=== PATIENT | male | born 1965 | race Caucasian/White ===

== ENCOUNTER → 2017-06-11 10:58 | Outpatient (CLI) | payer OTHER, SELFPAY ==
[2017-06-11 12:13] LABS: ALB/GLOB Ratio 1.2 RATIO (0.9-2.4); AST(SGOT) 26 U/L (15-37); Alanine Aminotransfer ALT/SGPT 45 U/L (16-61); Albumin, Serum 4.1 g/dL (3.2-5.0); Alkaline Phosphatase 83 U/L (45-117); Anion Gap 8 (5-15); BUN 25 mg/dL (7-18); BUN/Creat Ratio 20.7 RATIO (10-20); Calcium,Total 8.7 mg/dL (8.5-10.1); Chloride 109 mmol/L (98-107); Cholesterol 159 mg/dL (200); Creatinine, Serum 1.21 mg/dL (0.70-1.30); EST Glomerular Filtration Rate 67 mL/min (>60); Est Glom Filt Rate - Afr Amer 81 mL/min (>60); Globulin 3.5 g/dL (2.2-4.2); Glucose 94 mg/dL (74-106); High Density Lipoprotein 47 mg/dL; PSA,Total - Annual Screen 0.68 ng/mL (0.00-4.00); Potassium 4.2 mmol/L (3.5-5.1); Protein, Total 7.6 g/dL (6.4-8.2); Sodium Level 142 mmol/L (136-145); Triglycerides 51 mg/dL; Very Low Density Lipoprotein 10 mg/dL (5-40)
== END ==
PROVIDERS: Family Provider Family Medicine; PCP Family Medicine; Visit Provider Family Medicine
DX: Z00.00 Encounter for general adult medical examination without abnormal findings (principal)
CPT/HCPCS: 36415; 80053; 80061; 84153; G0103

== ENCOUNTER → 2017-07-24 16:59 | Outpatient (CLI) | payer OTHER, SELFPAY ==
--- NOTE | 2017-07-24 17:10 | RAD_ITS ---
STUDY: X-RAY CHEST REASON FOR EXAM: Male, 51 years old. Shortness of breath TECHNIQUE: Frontal and lateral views COMPARISON: None. FINDINGS: The lungs are expanded. Left basilar atelectasis. Normal size heart. Normal mediastinum and santhosh. Normal visualized pulmonary arteries. Normal visualized aortic arch and descending thoracic aorta. Normal visualized thoracic spine. Normal visualized ribs, clavicles, and shoulders. There is no demonstrated abnormality of the visualized soft tissue structures of the upper abdomen. RAD/Chest PA and Lateral IMPRESSION: Left basilar atelectasis. Electronically Signed: Ryan Coto DO at 23:54 EDT Tel [phone], Service support ,
[2017-07-24 17:36] LABS: Absolute Lymphocyte Count 1.89 X10^3/ul (0.83-4.51); Absolute Neutrophil Count 7.3 X10^3/uL (2.0-7.7); Basophil# 0.04 X10^3/uL; Basophil% 0.4 % (0-1); Eosinophil# 0.06 X10^3/uL; Eosinophils% 0.6 % (0-5); Hematocrit 40.9 % (40-54); Hemoglobin 14.1 g/dl (13.0-16.5); Lymphocyte # 1.89 X10^3/ul (4.0); Lymphocyte % 18.1 % (19-41); Mean Corp Hgb Conc 34.5 g/gl (32-36); Mean Corpuscular Hgb 32.9 pg (27.0-32.0); Mean Corpuscular Volume 95.6 fL (80-94); Mean Platelet Vol. 8.5 fl (6.2-12.0); Monocyte# 1.16 X10^3/uL; Monocyte% 11.1 % (0-10); Neutrophil # 7.26 X10^3/uL (2.7-7.7); Neutrophil % 69.6 % (47-70); Platelet Count 98 K/mm3 (150-450); RBC Distribution Width CV 11.9 % (11.6-14.6); Red Blood Count 4.28 M/mm3 (4.6-6.2); White Blood Count 10.4 K/mm3 (4.4-11.0)
[2017-07-24 17:40] LABS: POSITIVE COUNT NO; POSITIVE DIFFERENTIAL NO; POSITIVE MORPHOLOGY NO
== END ==
PROVIDERS: Family Provider Family Medicine; PCP Family Medicine; Visit Provider Family Medicine
DX: J15.9 Unspecified bacterial pneumonia (principal)
CPT/HCPCS: 36415; 71046; 85025

== ENCOUNTER 2017-08-31 09:12 | Day surgery (SDC) | payer OTHER, SELFPAY ==
[2017-08-31] VITALS (7 sets, daily range): BP systolic 82–126; BP diastolic 49–81; PULSE 64–87; RESP 14–20; TEMP 36.2–36.7; O2SAT 94–97; BMI 27.6
--- NOTE | 2017-08-31 10:00 | COLBX_PTH ---
PATIENT: HELEN BELLAMY LOC: EN U#:[id number] AGE/SX: 51/M ROOM: RE08/31/[address]: Dr. Luis Cowan MD : [id number] BED: DIS: 08/31/2017 SPEC #: [id number] RECD: 08/31/17 12:24 STATUS: RACHID SHE #: [id number] CANDIE: 08/31/17 10:[address]: Luis Cowan DEPT: SURGICAL PATHOLOGY RECD BY: Mago Rico ENTERED: 08/31/17 13:11 SP TYPE: COLON BX OTHR DR: Dr. Juan Carlos Reese, DO Tissues: Transverse colon Procedures: Surgery Specimen Level IV HEADER OPERATION: colonoscopy (MAC) PRE-OP DIAGNOSIS: Screening TISSUE SUBMITTED: Transverse colon polyp biopsy MICROSCOPIC DIAGNOSIS Transverse colon polyp, biopsy: Fragments of hyperplastic polyp. SJ:meenakshi 09/03/17 MICROSCOPIC DESCRIPTION Slides are reviewed. GROSS DESCRIPTION Received in fixative is one container labeled with the patient's name and designated transverse colon polyp biopsy. The specimen consists of two irregular fragments of light palafox soft tissue that in aggregate measure 0.6 x 0.3 x 0.1 cm. The specimen is totally submitted in one cassette. / SJ:rg 08/31/17 TC:1 CPT: 44400
--- NOTE | 2017-08-31 10:16 | HP.PCM_ITS ---
Past Medical/Surgical History - Planned Operation Planned Operative Procedure/s: cscope Date of Operative Procedure: 08/31/17 Permit Signed: No S.O.S: No Is This Patient Having a Total Joint: No - Previous Hospitalizations/Surgeries HX Hospitalizations: No HX of Surgeries: node removed from parathyroid. right ear surgery as child Any Problems With Anesthesia: Yes - nausea and vomiting You/Your Family Experience Fever (Hyperthermia) With Anes: No Cholinesterase deficiency: No - Cardiovascular Hx Chest Pain within Last 2 months: No Hx of Irregular Heartbeat and/or Afib: No Hx Heart Attack: No Hx Congestive Heart Failure: No Hx Rheumatic Fever: No Hx Hypertension: No Hx Internal Defibrillator: No Hx Pacemaker: No Hx Cardiac Catheterization: No Hx Cardiac Surgery/Stents/Etc.: No Hx Stress Test: Yes - over 10 yrs ago and was neg. per pt HX Edema: No Hx Pain in Legs when Walking/Leg Cramps: No - Respiratory Chronic Cough: No HX of Shortness of Breath: No Hoarseness: No Hx Chronic Obstructive Pulmonary Disease (COPD): No Hx Asthma: No Hx Emphysema: No Hx Sleep Apnea: No Hx Oxygen Use at Home: No Hx Respiratory Tract Infection/Cold (presently): Yes - pneumonia/resolved Do You Snore Loudly (louder than talking or can be heard): No Do You Often Feel Tired/ Fatigued/ Sleepy Dring Daytime?: No Has Anyone Observed You Stop Breathing During Sleep?: No Result (for STOP score): Negative Hx Smoking: No Smoking Status: Never smoker - Gastrointestinal Hx Gastroesophageal Reflux: No Hx Gastrointestinal Disorders: No Hx Gastrointestinal Bleed: No Hx Ulcer: No Hx Hiatal Hernia: No Difficulty Chewing/Swallowing: No Recent Onset of Swallowing Problems: No Special diet followed at home: No Hx Unplanned Weight Loss of 20#: No HX Unplanned Weight Gain of 20#: No - Neurological Hx Seizures: No HX Syncope/Blackout Spells/Unconsciousness: No Hx CVA/Stroke: No Hx Transient Ischemic Attacks (TIA): No Hx Multiple Sclerosis: No Hx Parkinson's Disease: No Hx Head/Neck Injury: No Hx Headaches: No Hx Back Injury/Pain: No Recent Onset of Speech Difficulty: No Restless Legs: No Does patient have nerve stimulator: No Patient instructed to have device shut off: No Rep notified?: No - Blood Disorder Hx Leukemia: No Bleeding Tendencies: No Hx Deep Vein Thrombosis: No Hx High Cholesterol: No Blood Transmitted Disease: No Hx Hepatitis: No Hx Cirrhosis: No Hx Anemia: No Hx Blood Disorders: No - Genitourinary Hx Renal Disease: No - Musculoskeletal Hx Arthritis: No Hx Rheumatoid Arthritis: No Hx Gout: No Recent Onset of an Orthopedic Problem: No - Endocrine Hx Diabetes: No Thyroid Disease: No Hx Steroid Therapy: No - Psycho/Social Hx Substance Use: No Hx Alcohol Use: Yes - light to moderate/social Hx Anxiety: No Hx Depression: No Mental Illness: No Hx Dementia: No - Miscellaneous Hx Cancer: No Recent Exposure to Contagious Disease: No Active MRSA: No Hx of C-Diff: No Any Loose Teeth: No Allergies No Known Allergies Allergy (Unverified 08/30/17 16:07) - Discharge Is Pt Admitted From a Retirement, or a Correction: No Who Could Help: After D/C, Where Do you Plan to Go: Return Home - Physical Exam General: Alert, Oriented x3, Cooperative Lungs: Normal air movement Cardiovascular: Regular rate, Regular Rhythm Abdomen: Soft, Non Tender, Non-Distended Vital Signs Temp Pulse Resp BP Pulse Ox 97.1 F L 87 20 H 126/81 H 96 08/31/17 09:29 08/31/17 09:29 08/31/17 09:29 08/31/17 09:29 08/31/17 09:29 Oxygen Delivery Method Room Air Weight: 214 lb 11.684 oz Body Mass Index (BMI) 27.6 Assessment/Plan All Active Problems (Last Reviewed 07/24/17 @ 16:26 by Dasha Uribe) Community acquired bacterial pneumonia (Acute) History of kidney stones (Acute) 51-year-old male for screening colonoscopy 1. The patient reports he is having no issues at this time. He has no abdominal pain or blood in his stool. He has no family history of colon cancer. He has never had a colonoscopy in the past. 2. I explained endoscopy in detail to the patient. I explained the risks including but not limited to stroke or heart attack with anesthesia, perforation of the GI tract, bleeding, infection. I explained that any of these could necessitate further emergency surgery. The patient understands and all questions were answered sufficiently. The patient wishes to proceed with procedure. Luis Cowan MD Pager: [facility] [address] [place] [address], [address] [place] [address] Office: Surgery Risks - Colonoscopy Risks Include but are not Limited To: Risks include but are not limited to: Bleeding, perforation requiring further surgery, inability to complete colonoscopy requiring barium enema.
--- NOTE | 2017-08-31 10:58 | PCM.OPRPT ---
Problem List (1) Screen for colon cancer Status: Acute Report of Operation Date of Procedure: 08/31/17 Pre-Operative Diagnosis: Screening for colon cancer Post-Operative Diagnosis: Transverse colon polyp Surgery/Procedure Performed:: Colonoscopy with biopsy Specimen's removed: Transverse colon polyp Description of Procedure: The major risks and benefits associated with the procedure were explained to the patient in detail. The patient verbalized understanding and agreement with the same. The patient was brought to the endoscopy suite. After adequate sedation was achieved, the patient was placed in the left lateral decubitus position and a digital rectal exam was performed. This examination was within normal limits. A well-lubricated colonoscope was then inserted into the rectum and advanced under direct visualization to the level of the cecum. The bowel prep was good. The cecum was identified by both visual and anatomic landmarks. A photograph was taken of the end of the cecum. The scope was then fully withdrawn while examining the color, texture, anatomy and integrity of the mucosa from the cecum to the anal canal. The patient did have a small area that could have been a sessile polyp versus hypertrophic fold of the colon. This was biopsied with cold forceps. Hemostasis was good. Otherwise the findings were consistent with normal colonic mucosa. Over 6 minutes were taken to examine the colonic mucosa. Upon reaching the rectum the scope was retroflexed to examine the distal rectal vault. The scope was then straightened and was completely retrieved upon exiting the anal canal and the procedure was terminated. The patient was then transferred to the recovery room in stable condition. Recommendations for follow up: Dependent on pathology
== END 2017-08-31 11:50 | disposition home or self-care (01) ==
LOC: EN 09:12 → AC 09:13
PROVIDERS: Family Provider Family Medicine; PCP Family Medicine; Visit Provider Surgery
PROC: 0DJD8ZZ Inspection of Lower Intestinal Tract, Via Natural or Artificial Opening Endoscopic (ICD-10-PCS; CPT 45378; principal; 2017-08-31 09:55)
DX: Z12.11 Encounter for screening for malignant neoplasm of colon (principal); K63.5 Polyp of colon; Z87.01 Personal history of pneumonia (recurrent); Z87.442 Personal history of urinary calculi; Z87.891 Personal history of nicotine dependence
CPT/HCPCS: 45380; 88305; J7120

== ENCOUNTER → 2022-02-13 | Outpatient (CLI) | payer BC, SELFPAY ==
--- NOTE | 2022-02-13 10:05 | RAD_ITS ---
INDICATION: trauma to the shoulder EXAMINATION/TECHNIQUE: X-RAY - RIGHT XR Shoulder Min 2 Views 4 VIEWS COMPARISON: None. FINDINGS: SOFT TISSUES: No soft tissue swelling or gas. No radiopaque foreign body. BONES/JOINTS: No acute fracture. Joint spaces anatomically maintained. No sclerotic or destructive changes observed. RAD/Shoulder min 2 Views IMPRESSION: No acute bony injury. Electronically Signed: Jose Ulloa MD at 18:36 EST ,
[2022-02-13 11:18] LABS: ALB/GLOB Ratio 1.3 RATIO (0.9-2.4); AST(SGOT) 29 U/L (15-37); Alanine Aminotransfer ALT/SGPT 49 U/L (16-61); Alkaline Phosphatase 69 U/L (45-117); Anion Gap 7 (5-15); BUN 28 mg/dL (7-18); BUN/Creat Ratio 23.5 RATIO (10-20); Chloride 109 mmol/L (98-107); Cholesterol 201 mg/dL (200); Creatinine, Serum 1.19 mg/dL (0.70-1.30); EST Glomerular Filtration Rate 67 mL/min (>60); Est Glom Filt Rate - Afr Amer 81 mL/min (>60); Globulin 3.1 g/dL (2.2-4.2); Glucose 101 mg/dL (74-106); High Density Lipoprotein 52 mg/dL; Potassium 4.1 mmol/L (3.5-5.1); Protein, Total 7.1 g/dL (6.4-8.2); Sodium Level 143 mmol/L (136-145); Triglycerides 60 mg/dL; Very Low Density Lipoprotein 12 mg/dL (5-40)
== END | disposition home or self-care (01) ==
LOC: LAB 09:57
PROVIDERS: PCP Family Medicine; Referring Provider Family Medicine; Visit Provider Family Medicine
DX: M75.100 Unspecified rotator cuff tear or rupture of unspecified shoulder, not specified as traumatic (principal); H91.90 Unspecified hearing loss, unspecified ear
CPT/HCPCS: 36415; 73030; 80053; 80061

== ENCOUNTER 2022-04-25 11:30 | Outpatient (RCR) | payer BC, SELFPAY ==
--- NOTE | 2022-04-05 12:26 | HP.PTEVAL ---
Patient's Visit Information HELEN BELLAMY is a 56 year old M referred to Physical Therapy by Dr. Avelino Mims MD with a diagnosis of R SHLD PAIN. Date of Evaluation: 04/05/22 Physical Therapist: Agnes White PT, Cert MDT - Visit Plan Frequency: 2-3x /Week Duration: 4-6 Weeks Plan: CHECK AUTH. US, E-STIM, MH OR CP, MANUAL THERAPY FOR R SHLD JOINT MOBILIZATION, ROM AND STRETCHING. POSTURE CORRECTION/STRENGTHENING. R UE ROM, STRETCHING AND STRENGTHENING TO HELP MEET SET GOALS. - Subjective Diagnosis: R SHLD PAIN. 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 EMBALMER/FUNERAL DIRECTOR. Present symptoms: R SHLD PAIN. SOMETIMES TINGLING IN RIGHT HAND. NO OTHER TINGLING. RIGHT UE WEAKNESS. NO L UE SX'S. NO NEW NECK PAIN. R WRIST PAIN (WEARING A MAGNET BRACELET THAT SEEMS TO HELP). CHEIF C/O IS LACK OF MOBILITY IN R SHLD. Present since: LATE OCT 2021. Pain Scale: Worst - 3/10 Least - 1/10. Currently: 1-03/17. Commenced as a result of: FALL ON CONCRETE PATIO AT NEIGHBORS ON R SIDE, HEAD AND MOUTH. DID A PUSH UP WITH RIGHT UP TO GET UP OUT OF A PUDDLE. DID NOT HEAR OR FEEL ANYTHING POP. Symptoms at onset: R SHLD STIFFNESS/BRUISING. R MOUTH PAIN. Worse: MORNING, PUSHING OFF ON SOMETHING, TRYING TO REACH BACK, REACHING UP,. Better: HAVING IT DOWN BY SIDE. Disturbed sleep: YES. CURRENTLY HAS TO SLEEP ON L SIDE. Previous history/Previous treatment: UNREMARKABLE. This episode: ONLY SELF TREATMENT. NO INJECTIONS. NO MEDICATIONS. NO SURGERY. PCP DR. VILLALTA REFERRED PATIENT TO DR. MIMS. MRI ORDERED BY WAS DENIED AND DR. MIMS JUST ORDERED MRI AGAIN. Dizziness: NO. Tinnitis: YES - SOME RIGHT HEARING LOSS - NEWLY DIAGNOSED IN LAST COUPLE YEARS AND DEALING WITH PCP. Nausea: NO. Shortness of Breath: NO. Difficulty Swollowing: NO. Gait: NORMAL. Accidents: NO. Unexplained weight loss: NO. Imaging: R SHLD X-RAY 02/13/22 - NORMAL. PMH/Recent major surgery: LEFT acrom. fx. OTHER: IT IS CONSTANTLY REMINDING ME IT IS A PROBLEM BUT THE PAIN IS MILD. PATIENT REPORTS DR. MIMS RECOMMENDED MRI TO DETERMINE IF THERE IS A TEAR AND IF IT IS SURGICAL. PATIENT REPORTS HE WOULD LIKE A MORE DEFINATIVE DX WITH MRI SO THAT HE DOESN'T DO THE WRONG THINGS AND MAKE IT WORSE. - Objective THIS PATIENT AMBULATES INDEP'LY INTO PT WITH NO GROSS DEVIATIONS NOTED. RAINA UE LIGHT TOUCH SENSATION IS GROSSLY INTACT AND SYMMETRICAL. L UE ROM IS WFL AND STRENGTH IS WFL. NO ACUTE R SHLD PAIN/TENDERNESS WITH PALPATION. PATIENT IS R HAND DOMINANT WITH R SHLD LEVEL LOWER THAN LEFT. AROM OF R SHLD = 120 FORWARD FLEX IN SITTING AND 98 DEG ABD. IN SUPINE WITH 60 DEG OF ABD, ACTIVE AND PASSIVE R SHLD ROM IS 40 DEG INTO ER AND IR. HE HAS C/O PAIN WITH R SHLD ROM TESTING ALL PLANES BUT MORE C/O PAIN WITH R SHLD IR TESTING THAN ER TESTING. R UE STRENGTH: SHLD FLEX 3-/5, ABD 2+/5, IR 2+/5, ER 3-/5. RIGHT ELBOW FLEX 4-/5, EXT 4-/5. RAINA UE DTR'S ARE INTACT 2/3. - Balance/Special Test Scores Quick DASH Score: 22.7250 - Goals Goal 1:: DECREASE C/O RIGHT UE SX'S Goal Time Frame: 4-6 Weeks Goal 2:: INCREASE PAINFREE FUNCTIONAL ROM OF R UE TO EASE ADL'S Goal Time Frame: 4-6 Weeks Goal 3:: IMPROVE R UE FUNCTIONAL STRENGTH TO ASSIST WITH RETURN TO PRIOR ACTIVITY LEVEL Goal Time Frame: 4-6 Weeks Goal 4:: PATIENT WILL BE INDEP WITH A HEP FOR CONTINUED IMPROVEMENT ONCE FORMAL PHYSICAL THERAPY CONCLUDES. Goal Time Frame: 4-6 Weeks - Anticipated Interventions Patient/Client Instruction: Educate patient on: Condition, Plan of Care, Risk Factors For the Purpose of:: To improve self management Therapeutic Exercise to Include: Strength training, Body mechanics, Postural training, Flexibilty training, Neuromotor development, Passive ROM, Active ROM, Scapular Strength/Stabilization For the Purpose of:: To decrease pain, To increase ROM, To improve muscle performance and motor function, To increase tolerance to activity/condition/position, To improve ability of physical actions for home/community/work/leisure, To decrease soft tissue restriction, To increase flexibility/ROM Manual Therapy Techniques to Include: Mobilization, Passive ROM, Soft tissue mobilization For the Purpose of:: To decrease pain, To increase ROM, To improve nutrient delivery to tissue TENS: Yes IF ES: Yes Cryotherapy (ice pack, ice massage): Yes Thermo therapy (hot pack): Yes Ultrasound (thermal/non thermal): Yes For the Purpose of:: To decrease pain, To decrease swelling/inflammation, To improve nutrient delivery to tissue Thank you for the opportunity to evaluate your patient. For Medicare and Medicare HMO plans, please review the plan of care and approve it. It will need to be FAXED BACK to us at [phone] for Medicare purposes. For Medicare only, by signing this I certify the plan of care. Please let me know if there are questions or concerns regarding this plan of care. Physician Signature: Date:
--- NOTE | 2022-04-25 12:05 | HP.PTDCSUM_ITS ---
It has been my pleasure to treat HELEN BELLAMY referred by Dr. Avelino Freitas MD, with the diagnosis of R SHLD PAIN for a total of 6 visit(s). Discharge Date: 04/25/22 Please see the following information for a summary of their discharge status. Subjective: PATIENT REPORTS HE DIDN'T SLEEP ON HIS ARM PROPERLY LAST NIGHT AND IT IS TIGHT THIS MORNING. FELT LOOSER AFTER LAST VISIT AND I FEEL I GOT SOME OF MY BEST STRETCHES THAT DAY. PATIENT REPORTS HE HAS BEEN WORKING ON STRETCHING AND STRENGTHENING NOW FOR MONTHS AND HE JUST CAN'T PUSH PAST THE PAIN AND RESTRICTIONS. HE REPORTS HE FEELS BETTER FOR MOST OF THE DAY AFTER EA THERAPY SESSION THEN IT TIGHTENS BACK UP AGAIN. PATIENT DENIES ANY INCREASED SX'S WITH THERAPY. R SHLD Pain Intensity (Out of 10): 5 R ARM/FOREARM/WRIST/HAND Pain Intensity (Out of 10): 0 % Improvement: 0 Objective/Function: PATIENT IS NOT PROGRESSING. UPON EXAM TODAY THERE ARE NO SIGNIFICANT CHANGES IN ROM AND STRENGTH OF R SHLD COMPARED TO INITIAL EVAL. ONLY TEMPORY RELIEF SX'S REPORTED WELL. [facility] STORE HAS IS WORSE. PHYSICIAN RE-ASSESSMENT RECOMMENDED - PATIENT AGREEABLE. Goal 1:: DECREASE C/O RIGHT UE SX'S Goal Progress: Not Progressing Goal 2:: INCREASE PAINFREE FUNCTIONAL ROM OF R UE TO EASE ADL'S Goal Progress: Not Progressing Goal 3:: IMPROVE R UE FUNCTIONAL STRENGTH TO ASSIST WITH RETURN TO PRIOR ACTIVITY LEVEL Goal Progress: Not Progressing Goal 4:: PATIENT WILL BE INDEP WITH A HEP FOR CONTINUED IMPROVEMENT ONCE FORMAL PHYSICAL THERAPY CONCLUDES. Goal Progress: Not Progressing Plan: D/C TO PHYSICIAN RE-ASSESSMENT DUE TO LACK OF PROGRESS. PATIENT A GREEABLE. If there are questions or concerns regarding this patient's physical therapy, please feel free to call me at [phone]. Thank you for the referral of this patient. Sincerely, Agnes White, PT, Cert MDT Balance/Gait/Functional tests - Balance/Special Test Scores Quick DASH Score: [phone]
== END 2022-04-25 15:21 | disposition home or self-care (01) ==
LOC: PT 11:30
PROVIDERS: PCP Family Medicine; Referring Provider Orthopaedic Surgery Sports Medicine; Visit Provider Orthopaedic Surgery Sports Medicine
DX: M25.511 Pain in right shoulder (principal)
CPT/HCPCS: 97035; 97110; 97162; 97530

== ENCOUNTER → 2022-05-03 | Outpatient (CLI) | payer BC, SELFPAY ==
--- NOTE | 2022-05-03 07:55 | MRI_ITS ---
STUDY: MRI RIGHT SHOULDER REASON FOR EXAM: Male, 56 years old. Fall 6 months ago. Pain. Limited range of motion rule out cuff tear TECHNIQUE: Standardized fat and water weighted pulse sequences were obtained in all 3 orthogonal planes. COMPARISON: X-ray February 13, 2022 FINDINGS: There is humeral surface and intrasubstance tear of the supraspinatus tendon with delamination, series 5 images 10/25 and 11/24. Normal infraspinatus tendon. Normal subscapularis tendon. Normal teres minor tendon. Normal supraspinatus muscle. Normal infraspinatus muscle. Normal subscapularis muscle. Normal teres minor muscle. Normal glenohumeral articulation. There is small joint effusion. Normal humeral head and visualized proximal humerus. Normal biceps labral complex. Normal intracapsular long biceps tendon. There is tear of the superior labrum adjacent to the biceps anchor, series 5 image 01/24. Normal capsulo- ligamentous complex. Normal rotator interval. There is mild osteoarthritis of the acromioclavicular articulation. There is a Type II morphology (curved) acromion, with a neutral orientation. There is mild fluid distention of the subacromial bursa, consistent with mild subacromial-subdeltoid bursitis. Normal visualized coracohumeral and coracoacromial ligaments. Normal quadrilateral space. Normal axillary space. Normal deltoid muscle. Normal trapezius muscle. MRI/Upper Ext Joint Only(Routine) IMPRESSION: High-grade partial rotator cuff tear of the supraspinatus tendon. SLAP lesion with tear of the superior labrum. Joint effusion. Subacromial subdeltoid bursitis. Electronically Signed: Zeke Ren MD at 20:49 EDT ,
== END | disposition home or self-care (01) ==
PROVIDERS: PCP Family Medicine; Referring Provider Orthopaedic Surgery Sports Medicine; Visit Provider Orthopaedic Surgery Sports Medicine
DX: M25.511 Pain in right shoulder (principal)
CPT/HCPCS: 73221

== ENCOUNTER 2022-05-31 07:56 | Day surgery (SDC) | payer BC, SELFPAY ==
--- NOTE | 2022-05-29 09:00 | EKG12_ITS ---
Test Reason : PRE OP Blood Pressure : / mmHG Vent. Rate : 066 BPM Atrial Rate : 066 BPM P-R Int : 154 ms QRS Dur : 092 ms QT Int : 380 ms P-R-T Axes : 055 056 037 degrees QTc Int : 398 ms Normal sinus rhythm Nonspecific T wave abnormality Abnormal ECG Confirmed by KELLE ZENDEJAS, MARIA ELENA ([id number]), script editor DEV HARRIS ([id number]) on 05/29/2022 12:38:26 PM Referred By: Avelino Freitas Confirmed By:MARIA ELENA NINA MD
[2022-05-31] VITALS (7 sets, daily range): BP systolic 92–143; BP diastolic 52–92; PULSE 65–77; RESP 16–17; TEMP 35.7–36.4; O2SAT 93–99; BMI 29.0
[2022-05-31] MEDS: Lactated Ringers 1,000 ML 15 ML IV (08:26)
--- NOTE | 2022-05-31 08:36 | PCM.HP.STD ---
HPI - General HPI Narrative HELEN BELLAMY, is a 56 M who presents for right shoulder arthroscopy, capsular release and manipulation under anesthetic, subacromial decompression, rotator cuff repair, subpectoral biceps tenodesis. H and P updated, no changes. OK to proceed. RAB and recovery, narcotic counselling discussed. Right shoulder marked, ok to proceed. MR#: [id number] Acct: [id number] Name:HELEN MANCIA Rep #: [id number] : 1965 ? ? Provider: Dr. Avelino Freitas MD Age/Sex:? 56/M ? ? [place] [facility] [place] Status: Signed Intake Intake Visit Reasons:?RIGHT SHOULDER Chief Complaint: right shoulder x-rays in system Is patient in pain?: Yes (right shoulder ) Pain scale (1-10): 2 Allergies No Known Allergies Allergy (Verified 05/11/22 08:30) Medications multivitamin 1 tab PO DAILY 10/06/21 [History Confirmed 05/11/22] PFSH Medical History? History of kidney stones Right rotator cuff tear Right shoulder pain Seasonal allergies Superior labrum jviwlrto-qv-umyufzucg (SLAP) tear of right shoulder Surgical History? History of parathyroid surgery Family History? Mother CVA (cerebral vascular accident) Hyperlipemia HypertensionFather Heart disease Social History? Smoking Status:? Never smoker how long ago did patient quit smoking:? 2004 alcohol intake:? current alcohol intake frequency: a few times a month substance use type:? does not use what type of physical activity do you participate in:? weight training and other details: tennis frequency:? 3-4 times per week HPI RIGHT SHOULDER Details: Parts of this documentation were recorded by a scribe, this documentation accurately reflects the service provided and the decisions made by me, Dr. Avelino Freitas MD 05/11/22 0806. HELEN BELLAMY is a 56 year old M here today for? FU right shoulder MR to rule out cuff tear after slip and fall.? He has done 6 weeks of therapy.? Does not want to go with cortisone injections wants a definitive surgical solution.? He still has some stiffness difficulty sleeping on the arm pain down the lateral and anterior aspect of the shoulder. Ortho Exam General General: Yes no acute distress Neurologic: Yes alert and Yes oriented x3 Psychologic: Yes reasonable and appropriate Right Shoulder Skin/Wound: Yes CDI, No ecchymosis, No erythema and No swelling Testing: Positive Hawkin's, Neer's, Speed's, TTP Biceps, Drop Arm, Yergason's and empty can; Negative TTP AC Joint, Apprehension Test, Sulcus Sign, translation, Load and Shift, cross arm, lift off, scapular symmetry or scapular winging SHOULDER: ac and passive FE 120, ER 35, no lag, strength FE 4-/5 and ER 5/5, normal sens and motor to ax nerve, LHB and pec major feels intact. IR back pocket Supplemental Info MR#:? [id number] Acct: [id number] Name:? HELEN BELLAMY Rep #: [id number] :?? 1965 M 56 ? From:? ? Zeke Ren MD PCP: Dr. Juan Carlos Reese, DO ? Status: REG CLI Study: Upper Ext? Joint Only(Routine) ? Date of Exam: 05/03/22 Exam# [id number] ? Ordering Dr:? Avelino Freitas MD STUDY: ? MRI RIGHT SHOULDER REASON FOR EXAM: ? Male, 56 years old.? Fall 6 months ago. Pain. Limited range of motion rule out cuff tear TECHNIQUE: ? Standardized fat and water weighted pulse sequences were obtained in all 3 orthogonal planes. COMPARISON: ? X-ray February 13, 2022 FINDINGS: There is humeral surface and intrasubstance tear of the supraspinatus tendon with delamination, series 5 images 10/25 and 11/24. Normal infraspinatus tendon. Normal subscapularis tendon.? Normal teres minor tendon. Normal supraspinatus muscle.? Normal infraspinatus muscle.? Normal subscapularis muscle.? Normal teres minor muscle. Normal glenohumeral articulation. There is small joint effusion. Normal humeral head and visualized proximal humerus.? Normal biceps labral complex.? Normal intracapsular long biceps tendon.? There is tear of the superior labrum adjacent to the biceps anchor, series 5 image 01/24. Normal capsulo- ligamentous complex.? Normal rotator interval. There is mild osteoarthritis of the acromioclavicular articulation.? There is a Type II morphology (curved) acromion, with a neutral orientation. There is mild fluid distention of the subacromial bursa, consistent with mild subacromial-subdeltoid bursitis. Normal visualized coracohumeral and coracoacromial ligaments.? Normal quadrilateral space.? Normal axillary space. Normal deltoid muscle.? Normal trapezius muscle. MRI/Upper Ext? Joint Only(Routine) IMPRESSION: High-grade partial rotator cuff tear of the supraspinatus tendon. ? SLAP lesion with tear of the superior labrum. ? Joint effusion. Subacromial subdeltoid bursitis. ? Electronically Signed: Zeke Ren MD at 20:49 EDT , agree w rads asx Coding Level of Care Code Off vis,est,level 3 Diagnoses Right rotator cuff tear? M75.101 Superior labrum xzsbxfub-uj-dkjcypmcd (SLAP) tear of right shoulder? S43.431A Assessment and Plan Assessment and Plan (1) Right rotator cuff tear: ?Status:?Acute ?Plan: 56 M FU right shoulder pain , MRI shows a SLAP tear and partial-thickness supraspinatus tendon tear with preop stiffness.? Patient is desiring surgical solution.? He has stiffness I warned him that this is a risk factor for stiffness postoperatively.? This seems to been refractory to conservative management including stretching and focused physical therapy.? Patient does not wish to have a cortisone injection.? Surgical solution at this point would be right shoulder arthroscopy, capsular release and manipulation under anesthetic, subacromial decompression, rotator cuff repair, subpectoral biceps tenodesis.? 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 He understands wished to proceed signed scanned forms for surgery as well as possible need for blood products. Pros and cons risks and benefits were discussed with the patient including but not limited to infection, pain, stiffness, bleeding, damage to surrounding structures, neurovascular injury, recurrence or retear, failure or wear of hardware or fixation, instability, fracture, deep vein thrombosis and pulmonary embolism, humerus fracture, anesthetic risks, , patient dissatisfaction, need for further surgery and other risks.? Patient understood and wished to proceed with surgery, and signed the informed consent documentation. (2) Superior labrum inqwlbok-ta-abkdwvrcl (SLAP) tear of right shoulder: [facility] Medical History (Updated 05/19/22 @ 11:15 by Rocío Dowell) Alcohol use Arthritis Back pain Former smoker Heartburn History of kidney stones History of stress test Leg cramps Loss of hearing Marijuana use Right rotator cuff tear Right shoulder pain Seasonal allergies Superior labrum sulpmvos-kp-yizbybbyt (SLAP) tear of right shoulder Syncope Home Medications multivitamin 1 tab PO DAILY 10/06/21 [History Last Taken Unknown] Allergy/AdvReac Type Severity Reaction Status Date / Time No Known Allergies Allergy Verified 05/31/22 08:18 Family History Mother CVA (cerebral vascular accident) Hyperlipemia Hypertension Father Heart disease Surgical History (Updated 05/19/22 @ 11:15 by Rocío Dowell) History of parathyroid surgery Hx of colonoscopy Hx of myringotomy Social History Smoking Status: Former smoker how long ago did patient quit smokin alcohol intake: current alcohol intake frequency: a few times a month substance use type: does not use what type of physical activity do you participate in: weight training and other details: tennis frequency: 3-4 times per week Vital Signs Vital Signs Vital Signs: 05/31/22 08:19 05/31/22 08:19 Temperature 97.6 F L Temperature Source Temporal Pulse Rate 77 Respiratory Rate 16 Respiratory Pattern Normal Blood Pressure 132/90 H Blood Pressure Mean 104 Blood Pressure Source Monitor Blood Pressure Position Semi-Fowlers Blood Pressure Location Left Arm Pulse Ox 98 Oxygen Delivery Method Room Air Weight Weight: 225 lb 15.581 oz Body Mass Index (BMI) 29.0
[2022-05-31] MEDS: Cefazolin 2 GM in 0.9% Normal Saline 100 ML IV (09:30)
--- NOTE | 2022-05-31 09:36 | PCM.OPRPT ---
Problems Associated Problem List Diagnoses (1) Superior labrum rpeeqcaf-hf-fqziwnzwz (SLAP) tear of right shoulder: (2) Right rotator cuff tear: (3) Right shoulder pain: Report of Operation Date of Procedure: 05/31/22 Pre-Operative Diagnosis: right shoulder stiffness, RC tear, slap tear Post-Operative Diagnosis: same Surgery/Procedure Performed:: right shoulder arthroscopy, capsular release, ASHLEIGH, RCR, biceps tenodesis Surgeon: Avelino Freitas Type of Anesthesia: Block,Regional and General Anesthesiologist: Rigoberto Nicolas Estimated Blood Loss (mL): 100 Description of Procedure: Patient brought to the operating room theater.? Placed supine on the table.? General anesthesia induced.? 2 g IV Ancef administered prior to the start of procedure.? Patient placed right side up lateral decubitus beanbag positioner axillary roll used.? All bony prominences padded.? SCDs on the legs.? Upper extremity prepped and draped in usual sterile fashion chlorhexidine-based prep solution allowing over 3 minutes drying time prior to draping.? 10 pounds of inline traction with the arm in 35 degrees abduction was employed.? Preoperative timeout performed to confirm the site the patient and the surgery. Began by inserting the arthroscope into the intra-articular portion of the shoulder through a standard posterior arthroscopy portal.? Did a full diagnostic arthroscopy.? Shoulder very tight. Established an anterior portal through the rotator interval just posterior to the biceps tendon using inside-out spinal needle localization.? Cartilage on the glenoid and humeral head were normal.? Moderate synovitis throughout. Type II SLAP tear instability of the long head of the biceps insertion at the superior portion of the labrum.? No obvious other labrum tears.? No loose bodies.? Biceps tenotomy performed with an ablator instrument.? Gently debrided the stump.? Again, intra articular shoulder joint was very. I released the anterior superior portion of the capsule again very tight and difficult. I inserted a cannula anteriorly 7 x 7 mm. Put the scope anteriorly looked posteriorly. Used a cannula posteriorly. Did a posterior capsular release again very tight difficult to perform the complete capsular release therefore remove the arthroscope to do manipulation under anesthetic with the arm in external rotation to full forward elevation felt the capsular release as well as external rotation to 60 degrees, gained 170 FE. Reinserted the arthroscope. Cleared some minor bleeding. Completed the inferior aspect of the capsulotomy, and full capsulotomy 360 degrees and rotator interval resection. Took arthroscopy pictures throughout subscapularis appeared normal as did the posterior inferior aspect of the rotator cuff. In the mid aspect undersurface humeral sided near complete tear at the mid aspect of the supraspinatus. Gentle debridement under surface. Marked this with a spinal needle. Next placed the scope into the subacromial space.? Did a complete bursectomy.? I performed a subacromial decompression for moderate type II downsloping for approximately 4 mm down to flat margins. Identified the previous area of tearing of the supraspinatus where I marked it with a spinal needle. This was 90% partial-thickness completed the tear to a 5mm x 5 mm complete tear. I next used inverted horizontal mattress fiber tape Arthrex sutures as well as a fiber link stitch in between that to create a rip stop technique suture. I then used a pick instrument to create micro trephinations at the greater tuberosity insertion. I then chose my site for the suture anchor used the tap down to the second line and then inserted the Arthrex 4.75 mm bio Composite swivel lock anchor with 3 sutures down to an appropriate depth with good cortical purchase. Sutures cut short stay suture removed. Arthroscopy pictures taken and saved onto the system. Arthroscope withdrawn.? Next I turned my attention to the open aspect of the procedure.? Made a small 2 inch incision centered over the proximal anteromedial aspect of the upper humerus.? Carried dissection down through skin subcutaneous tissue, achieved meticulous hemostasis.? Incised the fascia in line with skin incision.? Identified long head biceps delivered this through the incision.? Used the Arthrex proximal biceps tenodesis with button kit whipstitch with a Abdullahi needle.? Did 5 locking sutures then passed the suture back proximally to lock the repair.? Cut the suture at the splice.? Shortened the tendon slightly.? Passed the sutures in opposing directions through the button.? Next I used the spade tip 3.2 mm drill bit unicortical hole irrigated any bone dust.? Did this in the mid aspect of the humerus.? Then passed the button into the hole flipped the button deliver the tendon to the tunnel.? Then used Umanzor needle passed 1 limb of the suture back through the tendon and 5 interrupted half inches with the sutures cut short to lock the tendon in place.? Wound thoroughly irrigated subcutaneous tissue closed with 2-0 Vicryl and 3-0 Monocryl.? Skin cleaned with wet and dry dressing, then application of Steri-Strips Adaptic 4 x 4 gauze ABD dressing cloth tape and a sling abduction pillow sling for the upper extremity.? Case terminated patient woken up from the general anesthetic transferred off the operating table and taken to postanesthetic care unit in stable condition.? All sponge needle instrument counts were correct no complications plan for the patient discharged home per day surgery criteria start pendulum exercises as well as hand wrist and elbow exercises and follow-up in the office in 2 days time. Complications none Admit VTE Documentation VTE Present on Admission: No VTE Mechan Device Prophylaxis: SCD's VTE Pharm Prophylaxis ordered?: No Reason prophylaxis not ordered:: Treatment Not Indicated Procedures Musculoskeletal 20xxx-29xxx: Other Procedure See Report
[2022-05-31] MEDS: Epinephrine (1 mg/ml) 1 MG/ML VIAL (10:09)
--- NOTE | 2022-05-31 11:30 | DCINST_ITS ---
Discharge Instructions Diet Discharge Diet: No restrictions Activity Ice area for (Minutes): 10 Lifting Restrictions: pendulums four times a day, no lifting over 1 pound, ok for assisted ROM Dressing / Incision Call your doctor if your incision/area has: Continuous Slow Oozing, Sudden Increased Bleeding, Increased Pain/ Swelling, Increased Redness, Foul Smelling Discharge and Swelling at the incision site Remove Dressing in: leave in place till F/U Follow Up Care Please Follow Up With: Avelino Freitas MD When: 2 days Test Results: Test results from this visit will be discussed in further detail at your follow- up appointment, if applicable. Discharge Plan Admission Attending Provider: Avelino Freitas Primary Care Provider: Juan Carlos Reese Instructions Patient Instructions: After Shoulder Arthroscopy Discharge Orders/Prescriptions Prescriptions: New oxycodone-acetaminophen [Endocet] 5-325 mg tablet 1 tab PO Q4H MDD 6 PRN (Reason: pain) 7 Days Qty: 30 0RF No Action multivitamin Tablet 1 tab PO DAILY Referrals / Follow Up: Juan Carlos Reese DO [Primary Care Provider] - Avelino Freitas MD [Med Staff - Active Staff] - Disposition Disposition (needs filled in before D/C Order can be placed): Home, Self Care
[2022-05-31] MEDS: HYDROcodone Bitartrate/Apap 5/325 Tablet PO (13:05)
== END 2022-05-31 14:21 | disposition home or self-care (01) ==
LOC: SDC 07:57 → AC 07:57
PROVIDERS: PCP Family Medicine; Referring Provider Orthopaedic Surgery Sports Medicine; Visit Provider Orthopaedic Surgery Sports Medicine
PROC: (CPT 29805; principal; 2022-05-31 09:15)
DX: S46.011A Strain of muscle(s) and tendon(s) of the rotator cuff of right shoulder, initial encounter (principal); S43.431A Superior glenoid labrum lesion of right shoulder, initial encounter; Z87.891 Personal history of nicotine dependence; W19.XXXA Unspecified fall, initial encounter
CPT/HCPCS: 29826; 29827; 23430; 01630; 64415; 29825; 93005; J7120; J2405

== ENCOUNTER 2022-08-28 17:00 | Outpatient (RCR) | payer BC, SELFPAY ==
--- NOTE | 2022-06-05 14:04 | HP.PTEVAL ---
Patient's Visit Information HELEN BELLAMY is a 56 year old M referred to Physical Therapy by Dr. Avelino Freitas MD with a diagnosis of R SLAP tear. Date of Evaluation: 06/05/22 Physical Therapist: [facility] DPT - Visit Plan Frequency: 2x /Week Duration: 8 weeks Plan: Start with PROM to R shoulder. Progressing to AROM once cleared by physician. Due to the hypomobility and requiring capsule release we need to push initial ROM as tolerated. - Subjective Pt. is here today for his initial evaluation with diagnosis of R SLAP tear. Pt. also had a biceps tenodesis. The physician wants us to focus on early ROM after capsule release. DOS: 05/31/22. Pt. arrives today without a sling with decent tolerance. Pt. reports no N/T in either UE. Pt. reports doing some exercises yesterday and now is arm is pretty sore. Pt. reports initial injury was last fall when he fall outside. He went to PT, but ultimately had to have surgery. He works from home, but does like to play tennis, but has had to hold off since his injury. Pt. would like to get back to all work and tennis activities without limitations. - Pain R shoulder Pain Intensity (Out of 10): 5 Pain Intensity Range: 2, 8 - Objective POSTURE: Pt. has R UE in guarded posture in sitting and standing. Anterior shoulder with FH posture. PALPATION: Pt. has tenderness along anterior shoulder and into biceps region. NEURO: Pt. has normal sensation to light and sharp touch. Pt. has 2+ biceps and triceps DTR. ROM: L shoulder and elbow full motion. RUE: elbow: full motion . mild increase NW at end range flexion. Shoulder PROM: flexion 95deg, abd 95deg, ER at side 30deg. extension 20deg. Pt. had pain as limiting factor with all ROM this date. MMT: LUE 5/5 throughout. RUE: DNT. - Balance/Special Test Scores Quick DASH Score: 81.8175 - Goals Goal 1:: LTG: Pt. to be I with HEP. Goal Time Frame: 4-6 Weeks Goal 2:: STG: Pt. to sleep throughout the night without increase in symptoms. Goal Time Frame: 2-4 Weeks Goal 3:: STG: Pt. to have full passive R shoulder ROM without increase in symptoms. Goal Time Frame: 2-4 Weeks Goal 4:: LTG: Pt. to have full AROM of R shoulder without increase in symptoms. Goal Time Frame: 4-6 Weeks Goal 5:: LTG: PT. to have increased strength of RUE to at least 4+/5 throughout allowing for increased tolerance to all ADLs. Goal Time Frame: 6-8 Weeks - Rehabilitation Potential Physical Therapy Diagnosis: Pt. has signs and symptoms consistent with R SLAP tear and capsule release. Pt. has marked hypomobility, weakness, difficulty with use of RUE. Pt. would benefit from PT to address his limited motion initially, progressing to end ranges as tolerated. Rehabilitation Potential: Excellent - Anticipated Interventions Patient/Client Instruction: Educate patient on: Condition, Plan of Care, Risk Factors, Benefits of Fitness Program For the Purpose of:: To improve decision making, To facilitate caregiver knowledge, To improve self management, To prevent re-injury, To improve ability to perform tasks related to life management, To improve tolerance to ADL's Therapeutic Exercise to Include: Strength training, Power training, Endurance training, Postural training, Flexibilty training, Passive ROM, Active ROM, Scapular Strength/Stabilization For the Purpose of:: To decrease pain, To decrease swelling/inflammation, To increase ROM, To improve nutrient delivery to tissue, To increase oxygenation perfusion, To improve muscle performance and motor function, To improve ability to perform ADL's Manual Therapy Techniques to Include: Mobilization, Passive ROM For the Purpose of:: To decrease pain, To increase ROM IF ES: Yes Cryotherapy (ice pack, ice massage): Yes For the Purpose of:: To decrease pain, To decrease swelling/inflammation, To increase ROM Thank you for the opportunity to evaluate your patient. For Medicare and Medicare HMO plans, please review the plan of care and approve it. It will need to be FAXED BACK to us at [phone] for Medicare purposes. For Medicare only, by signing this I certify the plan of care. Please let me know if there are questions or concerns regarding this plan of care. Physician Signature: Date:
--- NOTE | 2022-07-31 17:49 | HP.PTREVAL_ITS ---
Dr. Avelino Freitas MD, It has been my pleasure to treat HELEN BELLAMY over the last 12 visits for Right SLAP tear 05/31/22. Please see the progress note below for an update on the physical therapy plan of care! Subjective: Pt. reports overall doing better, but still feels really tight and weak. Pt. reports using his arm with chores last night and is tighter because of it. Objective/Function: Pt. continues to be very tight into end ranges of over head motions. AROM: flexion 145deg, abd 140deg, functional ER C1, functional IR L3. PROM: flexion 165deg, abd 160deg, ER at 90deg 80deg, IR at 90deg 30deg. MMT: 4- /5 throughout. Pt. really needs to continue to work on aggressive stretching into end ranges of motions, especially ER throughout, end range flexion/abd. Add in mobilizations throughout GH joint. Plan Plan: Asking for more visits with PT to address his hypomobility and progression of strengthening. Balance/Gait/Functional tests - Balance/Special Test Scores Quick DASH Score: 38.6350 Goals Goal 1:: LTG: Pt. to be I with HEP. Goal Time Frame: 4-6 Weeks Goal Progress: Progressing Goal 2:: STG: Pt. to sleep throughout the night without increase in symptoms. Goal Time Frame: 2-4 Weeks Goal Progress: Progressing Goal 3:: STG: Pt. to have full passive R shoulder ROM without increase in symptoms. Goal Time Frame: 2-4 Weeks Goal Progress: Progressing Goal 4:: LTG: Pt. to have full AROM of R shoulder without increase in symptoms. Goal Time Frame: 4-6 Weeks Goal Progress: Progressing Goal 5:: LTG: PT. to have increased strength of RUE to at least 4+/5 throughout allowing for increased tolerance to all ADLs. Goal Time Frame: 6-8 Weeks Goal Progress: Progressing Anticipated Interventions Patient/Client Instruction: Educate patient on: Condition, Plan of Care, Risk Factors, Benefits of Fitness Program For the Purpose of:: To improve decision making, To facilitate caregiver knowledge, To improve self management, To prevent re-injury, To improve ability to perform tasks related to life management, To improve tolerance to ADL's Therapeutic Exercise to Include: Strength training, Power training, Endurance training, Postural training, Flexibilty training, Passive ROM, Active ROM, Scapular Strength/Stabilization For the Purpose of:: To decrease pain, To decrease swelling/inflammation, To increase ROM, To improve nutrient delivery to tissue, To increase oxygenation perfusion, To improve muscle performance and motor function, To improve ability to perform ADL's Manual Therapy Techniques to Include: Mobilization, Passive ROM For the Purpose of:: To decrease pain, To increase ROM IF ES: Yes Cryotherapy (ice pack, ice massage): Yes For the Purpose of:: To decrease pain, To decrease swelling/inflammation, To increase ROM Please do not hesitate to contact me at [phone] by phone or if you have questions or concerns regarding this new plan of care! Sincerely, COLEMAN WernerT
== END 2022-08-28 19:00 | disposition home or self-care (01) ==
LOC: PT 17:00
PROVIDERS: PCP Family Medicine; Referring Provider Orthopaedic Surgery Sports Medicine; Visit Provider Orthopaedic Surgery Sports Medicine
DX: S43.431D Superior glenoid labrum lesion of right shoulder, subsequent encounter (principal)
CPT/HCPCS: 97110; 97140; 97161; 97164